=== PATIENT | male | born 1945 | race Caucasian/White ===

== ENCOUNTER 2024-07-07 06:20 | Observation (INO) ==
--- NOTE | 2024-07-07 06:44 | Emergency Department Note ---
Impression & Plan Appendicitis, Abdominal pain, Edema ED Provider Note NAME: ALLISON MANZANO AGE: 79 SEX: M : 1945 ARRIVES VIA: Walk-In INFORMANT: Patient ED PROVIDER(S): Esteban Moody DO CHIEF COMPLAINT: Abdominal pain HPI: Patient is a 79-year-old male with significant past medical history who presents to the ER for right lower quadrant abdominal pain. Pain started about 2 days ago. He notes it initially started as a constant dull pain and has worsened. He has no back pain. No dysuria, urgency or frequency. He has not been eating much. It does not really change with twisting, turning, and bending. He is concerned that it may be his appendix. No previous abdominal surgeries. No fevers. No other exacerbating or remitting factors. ADDITIONAL HISTORY OBTAINED: provides additional history and notes that he has no belly surgeries but did have a hip surgery previously. Chronic Medical/Social Conditions Affecting Care: Per HPI PAST MEDICAL HISTORY:See Below PAST SURGICAL HISTORY:See Below FAMILY HISTORY:See Below SOCIAL HISTORY:See Below HOME MEDICATIONS:See Below ALLERGIES:See Below VITALS:See Below PHYSICAL EXAMINATION: GENERAL: Sitting up in bed, alert, well appearing, well nourished, no distress, non-toxic EYE EXAM: normal conjunctiva. OROPHARYNX: no exudate, no erythema, lips, buccal mucosa, and tongue normal and mucous membranes are moist NECK: supple, no nuchal rigidity, no adenopathy, non-tender LUNGS: Clear to auscultation. Normal chest wall mechanics HEART: no murmurs, S1 normal and S2 normal ABDOMEN: abdomen soft, tender to palpation right lower quadrant, normo-active bowel sounds, no masses, no rebound or guarding. UPPER EXTREMITIES: upper extremities are grossly normal. LOWER EXTREMITIES: No pitting edema. NEURO EXAM: Normal sensorium, cranial nerves II-XII grossly intact, normal speech, no gross weakness of arms, no gross weakness of legs. MEDICAL DECISION MAKING: Patient is a 79-year-old male who presents ER for right lower quadrant abdominal pain that started about 2 days ago. He has no other complaints at this time. Does note that he has not been eating much. IV was established and blood work was obtained. Labs show no significant leukocytosis or anemia. BMP with a slightly elevated glucose at 120. LFTs and bilirubin were unremarkable. Lipase was normal. Discussed with the patient in regards to contrast dye allergy. He notes he had it a long time ago and he felt flushed with it. He never had any trouble breathing or rash. Patient was agreeable to be premedicated was given 50 mg of Benadryl IV and IV Solu-Medrol. CT was obtained. CT abdomen pelvis consistent with abdominal cyst, appendicitis and edema. UA was clean. Patient was updated bedside. Discussed with general surgery was taken to the OR. Patient was given IV Zosyn following discussion with general surgery who requested Zosyn. Patient was already given cefoxitin and as when I interpreted the images initially did appear to be consistent with appendicitis. Consults/Care Managements Discussions: Per MDM Triage Nursing notes reviewed. Limited review of prior medical records performed Vital Signs: reviewed and remarkable for HTn and tachy Differential diagnosis: Differential diagnoses includes but is not limited to gastritis, peptic ulcer disease, GERD, gallbladder disease, pancreatitis, small bowel obstruction, appendicitis, diverticulitis, hernia, urinary tract infection, torsion, perforation, trauma, infectious. ER treatment provided: See below Diagnostics interpreted by me include EKG and cardiac monitoring as listed below: -Cardiac Monitoring: An order was placed for continuous cardiac monitoring. The monitor shows a rate of 95 with sinus rhythm. -ECG: none -Laboratory studies:Interpreted by me as stated above in MDM and shown below. Imaging studies: Xrays: As interpreted by me:none CTs show: CT abdomen pelvis per my preliminary interpretation showed acute appendicitis CT of the pelvis per radiology as described above Procedures:none Critical Care: None Past Med/Surg History Problem List (Updated 07/07/24 @ 12:23 by Esteban Moody DO) Edema (Acute) Abdominal pain (Acute) Appendicitis (Acute) Medical History Rheumatic fever no valvular dz per pt GERD (gastroesophageal reflux disease) Renal cell adenocarcinoma Surgical cure per pt no chemo or xrt 1999 HLD (hyperlipidemia) HTN (hypertension) Surgical History S/P nasal surgery Hx of tonsillectomy History of total left hip replacement History of partial nephrectomy Social History Smoking Status: Never smoker Preferred Language: Albanian Feels Safe at Home: Yes Allergies Allergies Allergy/AdvReac Type Severity Reaction Status Date / Time Iodinated Contrast Media AdvReac Unknown Verified 07/07/24 07:11 Home Meds Home Medications Medication Instructions Recorded Confirmed lisinopril 20 mg tablet 20 mg PO UD 07/07/24 07/07/24 Results & Data (ED) Vital Signs Vital Signs - 24 hr 07/07/24 06:25 07/07/24 07:57 07/07/24 08:00 Temperature 36.8 C Temperature Source Temporal Artery Scan Pulse Rate 100 H 70 Pulse Rate from SpO2 Sensor 70 Pulse Rhythm Regular Pulse Strength Normal Respiratory Rate 18 23 Respiratory Effort / Characteristics Non-Labored Spontaneous Respiratory Depth Normal Respiratory Pattern Regular Blood Pressure 157/84 H 142/89 H Blood Pressure Mean 108 106 Blood Pressure Position Sitting Pulse Oximetry 93 95 Oxygen Delivery Method Room Air Sepsis Recent Fever Within 48 Hours No Sepsis New/Unexplained Change in Mental Status N/A Sepsis Action Taken by Nursing No Action Required 07/07/24 08:15 07/07/24 08:30 07/07/24 09:00 Temperature Temperature Source Pulse Rate 85 87 Pulse Rate from SpO2 Sensor 87 Pulse Rhythm Pulse Strength Respiratory Rate 20 Respiratory Effort / Characteristics Respiratory Depth Respiratory Pattern Blood Pressure 151/101 H Blood Pressure Mean 111 Blood Pressure Position Pulse Oximetry 93 Oxygen Delivery Method Sepsis Recent Fever Within 48 Hours Sepsis New/Unexplained Change in Mental Status Sepsis Action Taken by Nursing 07/07/24 09:12 07/07/24 10:00 07/07/24 10:00 Temperature Temperature Source Pulse Rate 92 H 92 H Pulse Rate from SpO2 Sensor 92 H Pulse Rhythm Pulse Strength Respiratory Rate 22 23 Respiratory Effort / Characteristics Respiratory Depth Respiratory Pattern Blood Pressure 146/92 H Blood Pressure Mean 108 Blood Pressure Position Pulse Oximetry 94 Oxygen Delivery Method Sepsis Recent Fever Within 48 Hours Sepsis New/Unexplained Change in Mental Status Sepsis Action Taken by Nursing Laboratory Data 07/07/24 06:40 07/07/24 06:40 Lab Results 07/07/24 Range/Units 06:40 WBC 10.80 (4.8-10.8) K/ul RBC 4.97 (4.70-6.10) M/uL Hgb 15.6 (14.0-18.0) g/dl Hct 45.5 (42.0-52.0) % MCV 91.5 (80.0-100.0) fL MCH 31.4 (25.0-34.0) pg MCHC 34.3 (32.0-36.0) g/dL RDW Std Deviation 43.4 (36.4-46.3) fL RDW Coeff of Anuradha 13.1 (11.5-14.5) % Plt Count 186 (130-400) K/uL MPV 9.6 (9.4-12.4) fL Immature Gran % (Auto) 0.3 % Neut % (Auto) 73.8 % Lymph % (Auto) 12.7 % [place] % (Auto) 9.1 % Eos % (Auto) 3.2 % Baso % (Auto) 0.9 % Neut # (Auto) 7.97 H (1.40-6.50) K/uL Lymph # (Auto) 1.37 (1.20-3.40) K/uL [place] # (Auto) 0.98 H (0.11-0.59) K/uL Eos # (Auto) 0.35 (0.00-0.50) K/uL Baso # (Auto) 0.10 (0.00-0.20) K/uL Immature Gran # (Auto) 0.03 (0.01-0.20) K/uL Sodium 135 L (136-145) mmol/L Potassium 4.0 (3.5-5.1) mmol/L Chloride 103 (98-107) mmol/L Carbon Dioxide 27 (21-32) mmol/L Anion Gap 5 (3-11) BUN 20 (6-23) mg/dl Creatinine 1.00 (0.6-1.4) mg/dl Est Cr Clr Drug Dosing 73.6 ml/min eGFR 77.52 BUN/Creatinine Ratio 20.0 (10-20) Glucose 120 H (70-99(Fasting)) mg/dl Calcium 9.1 (8.6-10.3) mg/dl Total Bilirubin 1.1 H (0.2-1.0) mg/dl AST 11 L (13-39) U/L ALT 12 (7-52) U/L Alkaline Phosphatase 53 (34-104) U/L Total Protein 7.2 (6.0-8.3) gm/dl Albumin 3.9 (3.4-5.0) gm/dl Globulin 3.3 (2.5-4.0) gm/dl Albumin/Globulin Ratio 1.2 (0.9-2) Lipase 26 (11-82) U/L Urine Color Yellow Urine Appearance Clear (Clear) Urine pH 6.0 (4.5-7.5) Ur Specific [place] 1.014 (1.000-1.030) Urine Protein Negative (Negative) Urine Glucose (UA) Negative (Negative) Urine Ketones Trace H (Negative) Urine Blood Negative (Negative) Urine Nitrite Negative (Negative) Urine Bilirubin Negative (Negative) Urine Urobilinogen Negative (Negative) Ur Leukocyte Esterase Negative (Negative) Administered Medications Discontinued Medications Diphenhydramine HCl (Diphenhydramine 50 Mg/Ml Vial) 50 mg IV NOW STA Stop: 07/07/24 07:27 Last Admin: 07/07/24 07:32 Dose: 50 mg Documented By: ALMA DELIA Sodium Chloride (Nss) 500 mls @ 999 mls/hr IV .Q31M ONE Stop: 07/07/24 07:12 Last Infusion: 07/07/24 07:34 Dose: Infused Documented By: ALMA DELIA Admin: 07/07/24 06:48 Dose: 999 mls/hr Documented By: ELIZABETH Cefoxitin Sodium (Mefoxin) 2,000 mg in 60 mls @ 100 mls/hr IV NOW STA Stop: 07/07/24 09:22 Last Infusion: 07/07/24 10:33 Dose: Infused Documented By: ALMA DELIA Admin: 07/07/24 09:36 Dose: 100 mls/hr Documented By: ALMA DELIA Piperacillin Sod/Tazobactam Sod (Zosyn) 4.5 gm in 100 mls @ 200 mls/hr IV NOW ONE; Protocol Stop: 07/07/24 09:43 Last Infusion: 07/07/24 10:32 Dose: Infused Documented By: ALMA DELIA Admin: 07/07/24 09:36 Dose: 200 mls/hr Documented By: ALMA DELIA Ioversol (Optiray 320 100ml) 92 ml IV ONCE ONE Stop: 07/07/24 07:48 Last Admin: 07/07/24 07:47 Dose: 92 ml Documented By: MARGARITA Methylprednisolone (Methylprednisolone 125 Mg/2 Ml Vial) 125 mg IV NOW STA Stop: 07/07/24 07:27 Last Admin: 07/07/24 07:32 Dose: 125 mg Documented By: [facility] [place] Radiologist's Impression: Abdomen/Pelvis CT 07/07/24 06:42 Clinical History: Right lower quadrant pain Technique: Axial computed tomography images were obtained of the abdomen and pelvis after the administration of intravenous contrast. No prior CT is available for comparison. Findings: The liver is overall of normal size, attenuation, and contour with no sign of cirrhosis or significant fatty infiltration. There are multiple hepatic cysts, measuring up to 2.8 cm. No liver mass lesion is seen. The portal vein is patent. The gallbladder appears unremarkable. No bile duct dilatation is noted. The spleen is of normal size. No focal splenic lesion is evident. There are scattered small foci of pancreatic calcification, likely due to chronic pancreatitis. The pancreas otherwise appears normal with no sign of acute pancreatitis and no mass lesion noted. The pancreatic duct is of normal caliber. The adrenal glands appear unremarkable. No definite renal or proximal ureteral calculi are seen on this contrast-enhanced study. There is no hydronephrosis or perinephric stranding. No renal mass lesion is identified. There are bilateral renal cysts, measuring up to 6.3 cm. The abdominal aorta is of normal caliber. No abdominal adenopathy is seen. The stomach appears normal. There is no sign of small bowel obstruction. There is sigmoid diverticulosis without evidence of diverticulitis. The appendix is dilated and thick-walled with appendicoliths and surrounding soft tissue stranding. There is a minimal amount of ascites. No definite abscess is seen. No free intraperitoneal air is identified. No distal ureteral or bladder calculi are seen. No bladder mass lesion is evident. The iliac arteries are of normal caliber. No pelvic adenopathy is noted. The prostate is enlarged measuring 5.5 cm There is subsegmental atelectasis in both lung bases. The visualized descending thoracic aorta is aneurysmal, measuring 3.5 cm Lumbar scoliosis and degenerative disc disease is seen. There is grade 2 anterolisthesis at L5-S1 due to L5 pars defects. There is a left hip arthroplasty. 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 No fracture is identified. No focal osseous lesion is seen Impression: 1. Acute appendicitis. There is no sign of perforation or abscess formation 2. Minimal amount of ascites 3. Multiple hepatic and bilateral renal cysts 4. Mild chronic pancreatitis 5. Enlarged prostate. Correlation with PSA levels may be useful 6. Diverticulosis without evidence of diverticulitis 7. Partially visualized mild thoracic aortic aneurysm 8. Bilateral lung base atelectasis ACT 112: Positive. There are findings on this exam that require communication between the performing entity and the patient following Patient Test Result Information Act ([place] ACT 112) guidelines. Electronically signed by Champ Reis 07-07-2024 08:39 AM Discharge Plan Visit Data Chief Complaint: Abdominal Pain Stated Complaint: ABD PAIN ED Provider: Esteban Moody Discharge Problem: Appendicitis, Abdominal pain, Edema Patient Disposition: Admitted As Inpatient Discharge Problem: Appendicitis Qualifiers: Appendicitis type: acute appendicitis Acute appendicitis type: other Qualified Code(s): K35.890 - Other acute appendicitis without perforation or gangrene Abdominal pain Qualifiers: Abdominal location: unspecified location Qualified Code(s): R10.9 - Unspecified abdominal pain Edema Qualifiers: Edema type: unspecified Qualified Code(s): R60.9 - Edema, unspecified
[2024-07-07] MEDS: SODIUM CHLORIDE 0.9% 500 ML IV ONE (06:48)
[2024-07-07 07:00] LABS: Basophils % (auto) 0.9 %; Eosinophils # (auto) 0.35 K/uL (0.00-0.50); Eosinophils % (auto) 3.2 %; Hematocrit (blood only) 45.5 % (42.0-52.0); Hemoglobin 15.6 g/dl (14.0-18.0); Immature Granulocytes # (auto) 0.03 K/uL (0.01-0.20); Immature Granulocytes % (auto) 0.3 %; Lymphocytes # (auto) 1.37 K/uL (1.20-3.40); Lymphocytes % (auto) 12.7 %; Mean Corpuscular Hemoglobin 31.4 pg (25.0-34.0); Mean Corpuscular Hgb Conc 34.3 g/dL (32.0-36.0); Mean Corpuscular Volume 91.5 fL (80.0-100.0); Mean Platelet Volume 9.6 fL (9.4-12.4); Monocytes # (auto) 0.98 K/uL (0.11-0.59); Monocytes % (auto) 9.1 %; Neutrophils # (auto) 7.97 K/uL (1.40-6.50); Neutrophils % (auto) 73.8 %; Platelet Count 186 K/uL (130-400); RDW Coefficient of Variation 13.1 % (11.5-14.5); RDW Standard Deviation 43.4 fL (36.4-46.3); Red Blood Count 4.97 M/uL (4.70-6.10)
[2024-07-07 07:22] LABS: Albumin Globulin Ratio 1.2 (0.9-2); Albumin Level 3.9 gm/dl (3.4-5.0); Bilirubin,Total 1.1 mg/dl (0.2-1.0); Calcium 9.1 mg/dl (8.6-10.3); Creatinine Clr Calc Pharmacy 73.6 ml/min; Globulin 3.3 gm/dl (2.5-4.0); Total Protein 7.2 gm/dl (6.0-8.3)
[2024-07-07] MEDS: methylPREDNISolone 125 MG/2 ML VIAL IV STA (07:32)
[2024-07-07] MEDS: diphenhydrAMINE 50 MG/ML VIAL IV STA (07:32)
[2024-07-07] MEDS: OPTIRAY 320 100ml IV ONE (07:47)
[2024-07-07 08:14] LABS: Appearance Urine Clear (Clear); Bilirubin Urine Negative (Negative); Blood Urine Negative (Negative); Color Urine Yellow; Glucose Urine UA Negative (Negative); Ketones Urine Trace (Negative); Leukocyte Esterase Urine Negative (Negative); Nitrite Urine Negative (Negative); Protein Urine Negative (Negative); Specific Gravity Urine 1.014 (1.000-1.030); Urobilinogen Urine Negative (Negative)
--- NOTE | 2024-07-07 08:40 | CT Scan Report ---
Clinical History: Right lower quadrant pain Technique: Axial computed tomography images were obtained of the abdomen and pelvis after the administration of intravenous contrast. No prior CT is available for comparison. Findings: The liver is overall of normal size, attenuation, and contour with no sign of cirrhosis or significant fatty infiltration. There are multiple hepatic cysts, measuring up to 2.8 cm. No liver mass lesion is seen. The portal vein is patent. The gallbladder appears unremarkable. No bile duct dilatation is noted. The spleen is of normal size. No focal splenic lesion is evident. There are scattered small foci of pancreatic calcification, likely due to chronic pancreatitis. The pancreas otherwise appears normal with no sign of acute pancreatitis and no mass lesion noted. The pancreatic duct is of normal caliber. The adrenal glands appear unremarkable. No definite renal or proximal ureteral calculi are seen on this contrast-enhanced study. There is no hydronephrosis or perinephric stranding. No renal mass lesion is identified. There are bilateral renal cysts, measuring up to 6.3 cm. The abdominal aorta is of normal caliber. No abdominal adenopathy is seen. The stomach appears normal. There is no sign of small bowel obstruction. There is sigmoid diverticulosis without evidence of diverticulitis. The appendix is dilated and thick-walled with appendicoliths and surrounding soft tissue stranding. There is a minimal amount of ascites. No definite abscess is seen. No free intraperitoneal air is identified. No distal ureteral or bladder calculi are seen. No bladder mass lesion is evident. The iliac arteries are of normal caliber. No pelvic adenopathy is noted. The prostate is enlarged measuring 5.5 cm There is subsegmental atelectasis in both lung bases. The visualized descending thoracic aorta is aneurysmal, measuring 3.5 cm Lumbar scoliosis and degenerative disc disease is seen. There is grade 2 anterolisthesis at L5-S1 due to L5 pars defects. There is a left hip arthroplasty. 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 No fracture is identified. No focal osseous lesion is seen Impression: 1. Acute appendicitis. There is no sign of perforation or abscess formation 2. Minimal amount of ascites 3. Multiple hepatic and bilateral renal cysts 4. Mild chronic pancreatitis 5. Enlarged prostate. Correlation with PSA levels may be useful 6. Diverticulosis without evidence of diverticulitis 7. Partially visualized mild thoracic aortic aneurysm 8. Bilateral lung base atelectasis ACT 112: Positive. There are findings on this exam that require communication between the performing entity and the patient following Patient Test Result Information Act ([place] ACT 112) guidelines. Electronically signed by Champ Reis 07-07-2024 08:39 AM
[2024-07-07] MEDS: cefOXitin 2,000 MG/60 ML BAG IV STA (09:36)
[2024-07-07] MEDS: PIPERACILLIN/TAZOBACTAM 4.5 GM/100 ML BAG IV ONE (09:36)
--- NOTE | 2024-07-07 10:17 | History & Physical Report ---
Date of Service July 07, 2024 Assessment & Plan (1) Appendicitis: Plan: His CT images and results were personally viewed and interpreted by myself He does have 2 fecaliths present within the appendix and periappendiceal fat stranding and dilation of the appendix consistent with appendicitis He is gotten Angeveronica in the ER Will plan on a laparoscopic appendectomy, possible open Consent was obtained, risks discussed including bleeding, infection, abscess History of Present Illness Primary Care Provider: Jackie Echavarria DO This is a 79-year-old male who presented to the emergency room with 2 to 3 days of lower abdominal pain on the right side. This was sharp in nature. No radiation. He states that the pain did worsen around 5 AM this morning which brought him to the ER. He denies any nausea or vomiting. He denies any fevers or chills. He has never had abdominal surgery. He takes lisinopril for hypertension, otherwise no medications. Allergies Allergy/AdvReac Type Severity Reaction Status Date / Time Iodinated Contrast Media AdvReac Unknown Verified 07/07/24 07:11 Home Medications Medication Instructions Recorded Confirmed Type lisinopril 20 mg tablet 20 mg PO UD 07/07/24 07/07/24 History Past Med/Surg History Problem List Appendicitis Medical History Rheumatic fever no valvular dz per pt GERD (gastroesophageal reflux disease) Renal cell adenocarcinoma Surgical cure per pt no chemo or xrt 1999 HLD (hyperlipidemia) HTN (hypertension) Surgical History S/P nasal surgery Hx of tonsillectomy History of total left hip replacement History of partial nephrectomy Social History Smoking Status: Never smoker Preferred Language: Serbian Feels Safe at Home: Yes Review of Systems Constitutional: no fever and no chills Eyes: no blind spots and no corrective lenses Ear, Nose, Mouth, Throat: no ear pain and no hearing loss Respiratory: no cough and no dyspnea Cardiovascular: no chest pain and no dyspnea on exertion Gastrointestinal: + abdominal pain; no nausea, no vomiting , no constipation and no diarrhea/loose stools Genitourinary: no dysuria or no urinary incontinence Musculoskeletal: no back pain and no neck pain Integumentary: no acne, no sores, no erythema and no dry skin Neurologic: no gait abnormality and no headache(s) Psychiatric: no behavioral changes and no depression Hematologic / Lymphatic: no easy bleeding and no easy bruising Physical Exam Constitutional: WD/WN, vitals as above Eyes: PERRL, conjunctivae normal, anicteric sclerae ENMT: external ear and nose normal, oropharynx normal Neck: trachea midline, no thyromegaly Respiratory: normal respiratory effort, lungs clear to auscultation Cardiovascular: RRR, no murmur, no edema Gastrointestinal (Abdomen): Inspection/Auscultation: abdomen normal to inspection; abdomen not distended Percussion/Palpation: + abdomen tender (Right lower quadrant), + guarding and abdomen soft; no hernia Musculoskeletal: no cyanosis or clubbing, extremities motor strength 5/5 Skin: no rashes, warm and dry Neurologic: PERRL, EOMI, accommodation nl, no face palsy, no dysarthria Psychiatric: A+Ox3, euthymic affect Results & Data Results & Data Vital Signs (Past 12 Hours) Vital Signs Temp Pulse Resp BP Pulse Ox O2 Del Method 07/07/24 09:12 92 H 22 94 07/07/24 09:00 151/101 H 07/07/24 08:30 87 20 93 07/07/24 08:15 85 07/07/24 08:00 142/89 H 07/07/24 07:57 70 23 95 07/07/24 06:25 36.8 C 100 H 18 157/84 H 93 Room Air PG Care Time/CCT Total # of Minutes Spent Total Time Spent with Patient: Total time spent is greater than 50% in coordination of care (as documented) at patient's floor/unit and/or counseling patient: Coding Level of Care Code 56000 INT INP/OBS CARE 3/75MIN Diagnoses Appendicitis K37
--- NOTE | 2024-07-07 10:20 | Anesthesiology Consultation ---
Date of Service July 07, 2024 Assessment & Plan Chart Review Chart Review: Acceptable Risk for Surgery Consults Requested none ASA ASA2 Proposed Anesthesia Anesthesia Type: General (rsi) Risk / Benefits Reviewed With: PT / POA / Parent / Guardian, Accepts Plan and Informed Consent Obtained History Surgery Operation Date: 07/07/24 12:00 Proposed Procedures p Laparoscopic Appendectomy - Karel Solano DO Height/Weight Height: 5 ft 10 in Weight: 100.9 kg Allergies Allergy/AdvReac Type Severity Reaction Status Date / Time Iodinated Contrast Media AdvReac Unknown Verified 07/07/24 07:11 Medications Home Medications Medication Instructions Recorded Confirmed Last Taken lisinopril 20 mg tablet 20 mg PO UD 07/07/24 07/07/24 Unknown NPO Date Last Intake of Fluids: 07/06/24 Time Last Intake of Fluids: 23:59 Date Last Intake of Solids: 07/06/24 Time Last Intake of Solids: 22:00 Past Medical History Medical History (Updated 07/07/24 @ 10:28 by Tiara Johnson DO) Rheumatic fever no valvular dz per pt GERD (gastroesophageal reflux disease) Renal cell adenocarcinoma Surgical cure per pt no chemo or xrt 1999 HLD (hyperlipidemia) HTN (hypertension) Exercise / Class Metabolic Activity II 4-5 Yardwork/Stairs/Walk up hill Past Surgical History Surgical History (Updated 07/07/24 @ 10:18 by Tiara Johnson DO) S/P nasal surgery Hx of tonsillectomy History of total left hip replacement History of partial nephrectomy Past Anesthesia History No Hx of Anesthesia Complications and No Family Hx of Anesthesia Complications History of PONV No Hx of PONV and No Hx of Motion Sickness Social History Smoking Status: Never smoker Review of Systems ROS Unobtainable: All systems reviewed & are unremarkable except as noted in HPI & below Physical Exam Vital Signs Last Vital Signs Temp 36.8 C 07/07/24 06:25 Pulse 92 H 07/07/24 09:12 Resp 22 07/07/24 09:12 BP 151/101 H 07/07/24 09:00 Pulse Ox 94 07/07/24 09:12 O2 Del Method Room Air 07/07/24 06:25 ENMT Mouth: no TMJ abnormality Thyromental Distance: > or= 3.5 Finger Breadths Mallampati Class: II Neck normal visual inspection and trachea midline; neck extension not limited Respiratory normal respiratory effort Auscultation: lungs clear to auscultation bilaterally Cardiovascular Rate/Rhythm: regular rate and regular rhythm Heart Sounds: no murmur Musculoskeletal Spine: normal cervical ROM Extremities: full ROM of extremities Neurologic moves all extremities Psychiatric Orientation: alert and oriented x 3 Testing Laboratory Results 07/07/24 06:40 07/07/24 06:40 Urine Color Yellow 07/07/24 06:40 Urine Appearance Clear (Clear) 07/07/24 06:40 Urine pH 6.0 (4.5-7.5) 07/07/24 06:40 Ur Specific [place] 1.014 (1.000-1.030) 07/07/24 06:40 Urine Protein Negative (Negative) 07/07/24 06:40 Urine Glucose (UA) Negative (Negative) 07/07/24 06:40 Urine Ketones Trace (Negative) H 07/07/24 06:40 Urine Nitrite Negative (Negative) 07/07/24 06:40 Ur Leukocyte Esterase Negative (Negative) 07/07/24 06:40 Electrocardiogram Date: 07/07/24 pending
[2024-07-07] MEDS ORDERED: MoRPHine SULFATE 10 MG/ML CARP/VIAL IV PRN (10:28)
[2024-07-07] MEDS ORDERED: ePHEDrine sulfate 50 MG/ML AMP IV PRN (10:28)
[2024-07-07] MEDS ORDERED: MEPERIDINE HCL 25 MG/ML CARP/VIAL IV PRN (10:28)
[2024-07-07] MEDS ORDERED: ATROPINE SULFATE 0.1 MG/ML 10ML SYR IV PRN (10:28)
[2024-07-07] MEDS ORDERED: ONDANSETRON INJ 2 MG/ML 2 ML VIAL IV PRN ×2 (10:28→14:28)
[2024-07-07] MEDS ORDERED: fentaNYL citrate PF 100 MCG/2 ML VIAL IV PRN (10:28)
[2024-07-07] MEDS ORDERED: ROCURONIUM BROMIDE 10 MG/ML 5 ML VIAL IV ONE ×2 (10:45→12:44)
[2024-07-07] MEDS ORDERED: LIDOCAINE 2% 2 ML VIAL/AMP(20MG/ML) INFIL ONE (10:45)
[2024-07-07] MEDS ORDERED: PROPOFOL IV EMULSION 10 MG/ML 20 ML VIAL IV ONE (10:45)
[2024-07-07] MEDS ORDERED: DEXAMETHASONE SOD INJ 4 MG/ML VIAL ONE (10:45)
[2024-07-07] MEDS ORDERED: ONDANSETRON INJ 2 MG/ML 2 ML VIAL ONE ×2 (10:45→13:29)
[2024-07-07] MEDS ORDERED: fentaNYL citrate PF 100 MCG/2 ML VIAL ONE ×2 (10:46→12:35)
[2024-07-07] MEDS ORDERED: MIDAZOLAM HCL 1 MG/ML 2ML VIAL ONE (10:46)
[2024-07-07] MEDS ORDERED: SUGAMMADEX SODIUM 200 MG/2 ML VIAL IV ONE (12:21)
[2024-07-07] MEDS: FLOSEAL HEMOSTATIC MATRIX 10ML TOP ONE (12:59)
[2024-07-07] MEDS: BUPIVACAINE/EPINEPHRINE 0.25% 1:200,000 30 ML VIAL ONE (13:11)
--- NOTE | 2024-07-07 13:23 | Post Operative Brief Note ---
PG Immediate Post Op with CF Date of Surgery July 07, 2024 Pre & Post Diagnosis Operation Date: 07/07/24 12:00 Pre-Op Diagnosis: Appendicitis Post-Op Diagnosis: Gangrenous appendicitis with perforation I identified the patient and participated in the time-out.: Yes Procedure Operation Date: 07/07/24 12:00 Actual Procedures p Laparoscopic Appendectomy(Not Applicable) - Karel Solano DO Surgeon Karel Solano DO Blood Bank Attendant None Estimated Blood Loss 25 Findings See Below Retrocecal appendix with gangrene and perforation Specimens Specimen Description: A. Appendix Drains Karel Drain (19fr with 100ml evacuator) and Delgado Catheter Anesthesia Type General Complications none Disposition Disposition: Recovery Room
--- NOTE | 2024-07-07 13:27 | Operative Report ---
PG Post Operative Report Pre & Post Diagnosis Operation Date: 07/07/24 12:00 Pre-Op Diagnosis: Appendicitis Post-Op Diagnosis: Gangrenous appendicitis with perforation I identified the patient and participated in the time-out.: Yes Procedure Operation Date: 07/07/24 12:00 Actual Procedures p Laparoscopic Appendectomy(Not Applicable) - Karel Solano DO Surgeon Karel Solano DO [employer] None Estimated Blood Loss 25 Findings See Below Retrocecal appendix with gangrene and perforation Specimens Appendix to pathology Drains 19 Swiss Karel drain in the right lower quadrant Anesthesia Type General Complications none Disposition Disposition: Recovery Room Indications 79-year-old male with acute appendicitis Description of Procedure The patient was brought to the OR and placed in the supine position and SCD's placed. At this time he underwent general endotracheal anesthesia without incident. At this time a Delgado catheter was placed under sterile conditions. His abdomen was prepped and draped in the usual sterile fashion. He was given appropriate pre-operative antibiotics. A timeout was called, the procedure was verified as Laparoscopic appendectomy, possible open. Surgical, anesthesia and nursing teams agreed and the procedure was begun. After injection of 0.25% Marcaine with epinephrine, a supraumbilical incision was made using a #11 blade scalpel and carried down to the fascia with a hemostat. The abdomen was then elevated with towel clamps and entered using the Veress needle confirming position using the saline drop test. Pneumoperitoneum was established and 5mm trocar was placed. Laparoscope was introduced. No injury was seen from our entrance to the abdomen. At this time a 5mm suprapubic port and 12mm LLQ port were placed under direct visualization. The patient was placed in Trendelenburg and rotated to the left. The cecum was mobilized using the harmonic scalpel in order to visualize the retrocecal appendix. The appendix was densely adhered to both the cecum and peritoneum. Using blunt dissection I was able to free this and elevate the tip towards the abdominal wall. A 45mm purple load stapler was then fired across the base of the appendix which appeared healthy. The mesoappendix was then taken using Harmonic device. The appendix was then placed in an Endocatch bag and removed through the LLQ port site. Staple line was inspected and was intact. Hemostasis was complete. 10 mL of Floseal hemostatic agent was placed in the operative field. 19 Swiss Karel drain was introduced through the left lower quadrant port site and brought out of the suprapubic trocar and laid in the right lower quadrant in the operative bed. This was sutured in the place using 2-0 nylon. The 12 mm port was then closed at the fascial level using a 0 Vicryl suture using the suture passer. All ports were removed under direct visualization and no bleeding was noted. The abdomen was desufflated and the skin was closed using 4-0 Monocryl in a subcuticular fashion. Sterile dressings were applied. Delgado catheter was removed. The patient was then awakened from anesthesia having remained stable throughout the entire case and transported to PACU. All needle and sponge counts were correct x 2. I attest to the content of the Intraoperative Record and any orders documented therein. Any exceptions are noted below.
--- NOTE | 2024-07-07 14:12 | Anesthesiology Progress Note ---
Date of Service July 07, 2024 Anesthesia Post Procedure Vital Signs Vital Signs: Temp Pulse Pulse Resp BP BP Pulse Ox 07/07/24 14:05 81 125/77 92 07/07/24 13:55 36.5 C 96 H 124/76 95 07/07/24 13:45 93 H 127/77 98 07/07/24 13:35 78 120/71 97 07/07/24 13:29 36 C L 83 119/77 96 07/07/24 10:00 146/92 H 07/07/24 10:00 92 H 23 07/07/24 09:12 92 H 22 94 07/07/24 09:00 151/101 H 07/07/24 08:30 87 20 93 07/07/24 08:15 85 07/07/24 08:00 142/89 H 07/07/24 07:57 70 23 95 07/07/24 06:25 36.8 C 100 H 18 157/84 H 93 O2 Del Method O2 Flow Rate 07/07/24 14:05 Nasal Cannula 2 07/07/24 13:55 Nasal Cannula 2 07/07/24 13:45 Oxymask 6 07/07/24 13:35 Oxymask 10 07/07/24 13:29 Oxymask 10 07/07/24 10:00 07/07/24 10:00 07/07/24 09:12 07/07/24 09:00 07/07/24 08:30 07/07/24 08:15 07/07/24 08:00 07/07/24 07:57 07/07/24 06:25 Room Air Pain Intensity Right Lower Abdomen: Pain Intensity: 3 Abdomen: Pain Intensity: 3 Transfer of Care Handoff Completed per policy Notes Mental Status: alert / awake / arousable Patient Amnestic to Procedure: Yes Nausea / Vomiting: adequately controlled Pain: adequately controlled Airway Patency, RR, SpO2: stable & adequate BP & HR: stable & adequate Hydration State: stable & adequate Anesthetic Complications: no major complications apparent and Pt Satisfied with anesthetic care
[2024-07-07] MEDS ORDERED: MoRPHine SULFATE 2 MG/ML CARP IV PRN (14:28)
[2024-07-07] MEDS ORDERED: MoRPHine SULFATE 4 MG/ML 1 ML CARP\\VIAL IV PRN (14:28)
[2024-07-07] MEDS ORDERED: oxyCODONE HCL IR 5 MG TAB (IMMEDIATE RELEASE) PO PRN ×2 (14:28)
[2024-07-07] MEDS: ACETAMINOPHEN 325 MG TAB PO PRN (15:05)
[2024-07-07] MEDS: SODIUM CHLORIDE 0.9% 500 ML IV SCH (15:10)
[2024-07-07] MEDS: PIPERACILLIN/TAZOBACTAM 4.5 GM/100 ML BAG IV SCH (16:04)
[2024-07-08 06:21] LABS: Hematocrit (blood only) 41.3 % (42.0-52.0); Hemoglobin 13.8 g/dl (14.0-18.0); Mean Corpuscular Hemoglobin 31.4 pg (25.0-34.0); Mean Corpuscular Volume 93.9 fL (80.0-100.0); White Blood Count 13.69 K/ul (4.8-10.8)
[2024-07-08 06:22] LABS: Basophils # (auto) 0.02 K/uL (0.00-0.20); Basophils % (auto) 0.1 %; Immature Granulocytes # (auto) 0.05 K/uL (0.01-0.20); Immature Granulocytes % (auto) 0.4 %; Lymphocytes # (auto) 1.15 K/uL (1.20-3.40); Lymphocytes % (auto) 8.4 %; Mean Corpuscular Hgb Conc 33.4 g/dL (32.0-36.0); Mean Platelet Volume 9.5 fL (9.4-12.4); Monocytes # (auto) 1.06 K/uL (0.11-0.59); Monocytes % (auto) 7.7 %; Neutrophils # (auto) 11.41 K/uL (1.40-6.50); Neutrophils % (auto) 83.4 %; Platelet Count 173 K/uL (130-400); RDW Coefficient of Variation 12.9 % (11.5-14.5); RDW Standard Deviation 44.9 fL (36.4-46.3)
--- NOTE | 2024-07-08 06:44 | Surgery Progress Note ---
Date of Service July 08, 2024 Assessment & Plan (1) Appendicitis: Plan: Patient is POD #1 s/p lap appy for perforated appendicitis with Dr. Solano -Continue clear liquids for this morning, could consider possibly advancing diet later today -f/u AM labs -Continue IV abx -Pain control as needed -Encourage OOB and ambulation as tolerated -Will also order patient abdominal binder to have on when OOB for comfort -AMADA drain to remain in place for now Admission and Anticipated Discharge Date Admission Date: July 07, 2024 Supervising Physician Co-Signing Physician Notes I personally saw and evaluated the patient with Fabricio Barry PA-C and agree with the assessment plan 79-year-old male postoperative day 1 laparoscopic appendectomy with drain placement for perforated appendicitis Will advance his diet today Leave drain in place Continue IV antibiotics for another 24 hours If he continues to do well he may be stable for discharge tomorrow Subjective Patient underwent lap appy yesterday with Dr. Solano for perforated appendicitis Patient this morning is doing well however states he is having some pain/discomfort in the RLQ of his abdomen, worse with movement and ambulation AM Labs pending however he has been afebrile and continues on IV abx Tolerating clear liquids without any issues of N/V. Is not passing gas and has not had a BM AMADA drain in place with serosang output with 110cc recorded. Physical Exam Constitutional: WD/WN, vitals as above Respiratory: normal respiratory effort, lungs clear to auscultation Cardiovascular: RRR, no murmur, no edema Gastrointestinal (Abdomen): Abdomen soft, nondistended, appropriate TTP over surgical sites and RLQ. Incisions with dressings in place without any overlying signs of infection. AMADA drain in place with serosang output Skin: no rashes, warm and dry Results & Data Vital Signs (Past 12 Hours) Vital Signs Temp Pulse Resp BP Pulse Ox O2 Del Method O2 Flow Rate 07/08/24 02:39 36.9 C 84 16 119/68 93 Room Air 07/07/24 23:11 36.8 C 98 H 16 110/68 93 Room Air 07/07/24 20:06 Room Air, Nasal Cannula 2 07/07/24 19:10 36.7 C 91 H 16 104/67 95 Room Air PG Care Time/CCT Total # of Minutes Spent Total Time Spent with Patient: Total time spent is greater than 50% in coordination of care (as documented) at patient's floor/unit and/or counseling patient: Coding [place] [address] Post Operative Follow-Up Patient Type Established Medical Decision Making Straight Forward Diagnoses Appendicitis K35.890 Acute appendicitis type: other Appendicitis type: acute appendicitis (1) Appendicitis Acute appendicitis type: other Appendicitis type: acute appendicitis Qualified Code(s): K35.890 - Other acute appendicitis without perforation or gangrene
[2024-07-08 06:48] LABS: BUN Creatinine Ratio 18.3 (10-20); Calcium 8.3 mg/dl (8.6-10.3); Creatinine Clr Calc Pharmacy 70.8 ml/min; Potassium 4.2 mmol/L (3.5-5.1)
--- NOTE | 2024-07-08 13:08 | Electrocardiogram Report ---
Test Reason : Blood Pressure : */* mmHG Vent. Rate : 79 BPM Atrial Rate : 79 BPM P-R Int : 178 ms QRS Dur : 102 ms QT Int : 400 ms P-R-T Axes : 8 -31 9 degrees QTcB Int : 458 ms Normal sinus rhythm Left axis deviation Abnormal ECG No previous ECGs available Confirmed by Jeffry Miller ([id number]) on 07/08/2024 1:07:46 PM Referred By: REFERRED SELF Confirmed By: Jeffry Miller
[2024-07-08 15:16] VITALS: TEMP 98.1
[2024-07-09] MEDS: POLYETHYLENE (MIRALAX) 17 GM PACK PO PRN (06:28)
[2024-07-09 07:18] LABS: BUN Creatinine Ratio 16.1 (10-20); Calcium 8.3 mg/dl (8.6-10.3); Creatinine Clr Calc Pharmacy 59.4 ml/min
[2024-07-09 07:25] VITALS: BP 136/78; PULSE 76; RESP 18; O2SAT 94
--- NOTE | 2024-07-09 08:09 | Surgery Progress Note ---
Date of Service July 09, 2024 Assessment & Plan (1) Appendicitis: Plan: POD#2 laparoscopic appendectomy CBC pending this AM. Vitals stable, no fevers Abdomen mildly distended with expected post op discomfort. AMADA drain seroang. Pain is tolerable. He is on a regular diet without nausea/vomiting. He is ambulating the halls Consider d/c to home today, will likely d/c AMADA at dispo and send home on course of abx Will need f/u in the office with dr givens in 2 weeks Admission and Anticipated Discharge Date Admission Date: July 07, 2024 Supervising Physician Co-Signing Physician Notes Postoperative day 2 laparoscopic appendectomy for perforated gangrenous appendicitis Doing well, leukocytosis resolved Is tolerating a regular diet and passing flatus Drain is serosanguineous He stable for discharge from surgical standpoint Will give him 10 days of Augmentin and he will follow-up with me in 2 to 3 days for possible drain removal Subjective Patient reports feeling fairly well. Has some abdominal gas pains, but he is up ambulating and passing flatus. Hopeful for a BM soon. He is tolerating some food without nausea/vomiting. Physical Exam Physical Exam: awake/alert, no distress Gastrointestinal (Abdomen): Inspection/Auscultation: + abdomen distended, + abdominal surgical incision (surgical dressings c/d/i) and + abdominal surgical drain present (serosang. ) Percussion/Palpation: + abdomen tender (expected post op discomfort) and abdomen soft Results & Data Vital Signs (Past 12 Hours) Vital Signs Temp Pulse Resp BP Pulse Ox O2 Del Method 07/09/24 07:24 98.1 F 76 18 136/78 94 Room Air PG Care Time/CCT Total # of Minutes Spent Total Time Spent with Patient: Total time spent is greater than 50% in coordination of care (as documented) at patient's floor/unit and/or counseling patient: Coding Level of Care Code 81336 Post Operative Follow-Up Diagnoses Appendicitis K35.890 Acute appendicitis type: other Appendicitis type: acute appendicitis (1) Appendicitis Acute appendicitis type: other Appendicitis type: acute appendicitis Qualified Code(s): K35.890 - Other acute appendicitis without perforation or gangrene
[2024-07-09 08:15] LABS: Basophils # (auto) 0.07 K/uL (0.00-0.20); Basophils % (auto) 0.8 %; Eosinophils # (auto) 0.23 K/uL (0.00-0.50); Eosinophils % (auto) 2.8 %; Hematocrit (blood only) 41.8 % (42.0-52.0); Hemoglobin 13.5 g/dl (14.0-18.0); Immature Granulocytes # (auto) 0.03 K/uL (0.01-0.20); Immature Granulocytes % (auto) 0.4 %; Lymphocytes # (auto) 1.44 K/uL (1.20-3.40); Lymphocytes % (auto) 17.4 %; Mean Corpuscular Hemoglobin 30.9 pg (25.0-34.0); Mean Corpuscular Hgb Conc 32.3 g/dL (32.0-36.0); Mean Corpuscular Volume 95.7 fL (80.0-100.0); Mean Platelet Volume 9.9 fL (9.4-12.4); Monocytes # (auto) 0.83 K/uL (0.11-0.59); Neutrophils # (auto) 5.68 K/uL (1.40-6.50); Neutrophils % (auto) 68.6 %; Platelet Count 192 K/uL (130-400); RDW Coefficient of Variation 13.2 % (11.5-14.5); RDW Standard Deviation 46.7 fL (36.4-46.3); Red Blood Count 4.37 M/uL (4.70-6.10); White Blood Count 8.28 K/ul (4.8-10.8)
--- NOTE | 2024-07-11 11:39 | Discharge Summary ---
Date of Service July 09, 2024 Admission HPI Per Admitting Provider This is a 79-year-old male who presented to the emergency room with 2 to 3 days of lower abdominal pain on the right side. This was sharp in nature. No radiation. He states that the pain did worsen around 5 AM this morning which brought him to the ER. He denies any nausea or vomiting. He denies any fevers or chills. He has never had abdominal surgery. He takes lisinopril for hypertension, otherwise no medications. Principal Diagnosis Gangrenous appendicitis with perforation Discharge Exam Physical Exam: awake/alert, no distress Gastrointestinal (Abdomen): Inspection/Auscultation: + abdomen distended, + abdominal surgical incision (surgical dressings c/d/i) and + abdominal surgical drain present (serosang. ) Percussion/Palpation: + abdomen tender (expected post op discomfort) and abdomen soft Discharge Data Allergies Allergy/AdvReac Type Severity Reaction Status Date / Time Iodinated Contrast Media AdvReac Unknown Verified 07/07/24 07:11 Consultations 07/07/24 08:50 ED Decision to Admit Stat Procedures Performed Operation Date: 07/07/24 12:00 Actual Procedures p Laparoscopic Appendectomy(Not Applicable) - Karel Solano, Ordered Studies 07/07/24 06:42 CT abd pelvis IV con only Stat Hospital Course (1) Appendicitis: This is a 79 y male who presented to the [facility] ED on 07/07/24 with abdominal pain. Workup in the ED showed a CT a/p concerning for acute appendicitis (see HPI for full details). Patient made NPO with IVF and booked for the OR. On 07/07/24 the patient went to the OR with Dr Solano for a Laparoscopic appendectomy. The patient tolerated the procedure well, see operative report for full details. Post operatively the patient's diet was advanced, pain managed on prn meds, and incisions clean/dry/intact. He was sent home with a AMADA drain and verbalized instructions on care. On POD 2 07/09/24 the patient was deemed stable for discharge to home. The patient was given discharge instructions, follow up recommendations, return precautions and a prescription for antibiotics and narcotic pain medication. Total Time Total Time Spent Total Time Spent (In Minutes): 5 Discharge Plan Discharge Items Patient Disposition: Home - Self-Care Reason For Visit: ACUTE APPENDICITIS Discharge Diagnosis: acute appendicitis s/p laparoscopic appendectomy Activity: Per Instructions section Non-emergency contact: Primary Care Provider Call non-emergency contact if: your pain is not controlled, your temperature is above 101.5 and your wound has increased redness Follow-up/Referrals: Karel Solano DO [Physician] - (call the office to schedule follow up in the clinic on either tuesday or for drain removal) PCP,NO [Physician] - Diet: Regular Addtl Attending Provider Instructions: SPECIAL CARE INSTRUCTIONS: * You have white bandages over your incisions called steri strips. You may shower with these on. They will fall off within 7-10 days. * Please care for your drain as you have been instructed prior to discharge from the hospital. Empty drain 2-3x/daily and record output. Outside of emptying the drain keep it to bulb suction at all times. May keep a dry gauze dressing around drain site and change daily with dry gauze/tape. Call the office to schedule follow up in the clinic on either tuesday or for drain removal * Please complete the full course of antibiotic prescribed to you * You may shower however NO soaking in bath tubs, hot tubs, or pools for 2 weeks * No lifting greater than 10lbs. No exercise until cleared by surgeon. Light walking is accepted. * No driving while taking narcotic pain medication * No drinking alcohol while taking narcotic pain medication * May use Ibuprofen/Tylenol over the counter for pain as tolerated. Do not exceed 3grams of Tylenol per 24 hours * Expect some swelling and bruising. * Diet as tolerated CALL YOUR DOCTOR IF: * Temperature above 101 degrees, nausea/vomiting, fever/chills * Pain not relieved by pain medicine ordered * There is increased drainage or redness from any incision * You have any unanswered questions or concerns [phone]. FOLLOW UP VISIT: If not already scheduled, please call the office for a follow-up visit. Office Pending Studies at Discharge: No Stand-Alone Forms: My IEV, Smoking Cessation Medications and DC Order Prescriptions: New oxycodone 5 mg tablet 5 mg PO Q6H PRN (Reason: pain) Qty: 12 0RF Rx Instructions: Initial therapy post surgery amoxicillin-pot clavulanate 875-125 mg tablet 1 tab PO BID 10 Days Qty: 20 0RF Continued lisinopril 20 mg tablet 20 mg PO UD Rx Instructions: 20 mg po daily. Last filled 03/29/24 90 day supply Discharge Orders: Discharge Order (Routine); Ordered 07/09/24 Ordered By: Fior Pond Admission Data Admit Date/Time: 07/07/24 13:41 Attending Provider: Karel Solano Admit Provider: Karel Solano Primary Care Provider: Jackie Echavarria Other Providers: Karel Solano Other Interventions: Discharge Summary Assessment (RN) Last Done: 07/09/24 10:29 Supervising Physician Co-Signing Physician Notes Postoperative day 2 laparoscopic appendectomy for perforated gangrenous appendicitis Doing well, leukocytosis resolved Is tolerating a regular diet and passing flatus Drain is serosanguineous He stable for discharge from surgical standpoint Will give him 10 days of Augmentin and he will follow-up with me in 2 to 3 days for possible drain removal Coding Level of Care Code 69368 IN/OBS DISCH 30 MIN/LESS Diagnoses Appendicitis K35.890 Acute appendicitis type: other Appendicitis type: acute appendicitis
== END 2024-07-09 11:41 | disposition home or self-care (01) | DRG 399 ==
LOC: ED 06:20 → OR 11:35 → 3N 11:44 → INTOOBSV 13:41